=== PATIENT | male | born 1960 | race Caucasian/White ===

== ENCOUNTER 2018-11-13 09:35 | Day surgery (SDC) | payer OTHER | END 2018-11-13 16:50 | disposition home or self-care (01) | LOC: AMB-ENDOS 09:35 | DX: C20 Malignant neoplasm of rectum (principal) ==

== ENCOUNTER 2021-07-18 05:50 | Day surgery (SDC) | payer OTHER | END 2021-07-18 09:33 | disposition home or self-care (01) | LOC: AMB-ENDOS 05:50 | PROVIDERS: ATTEND Colon & Rectal Surgery | DX: K62.89 Other specified diseases of anus and rectum (principal); K64.8 Other hemorrhoids; Z20.822 Contact with and (suspected) exposure to COVID-19 ==

== ENCOUNTER 2021-12-13 11:07 | Inpatient (IN) | payer OTHER ==
[~2021-12-13] VITALS: Ht 180.3 cm; Wt 62.1 kg
[2021-12-13] MEDS ORDERED: LOSARTAN POTASS50 MG PO (12:10)
[2021-12-13] MEDS ORDERED: CLONAZEPAM0.5 MG PO (12:11)
[2021-12-13] MEDS ORDERED: TOPROL XL50 M1 PO (12:11)
[2021-12-13] MEDS ORDERED: LIPITOR20 MG PO (12:11)
[2021-12-13] MEDS ORDERED: TRIAZOLAM0.25 MG PO (12:12)
[2021-12-18] MEDS ORDERED: GABAPENTIN400 MG (11:01)
[2021-12-18] MEDS ORDERED: SERTRALINE HCL100 MG (11:02)
[2021-12-18] MEDS ORDERED: SULFASALAZINE500 M1 (11:02)
[2021-12-18] MEDS ORDERED: KETOCONAZOLE15 GM (11:02)
[2021-12-18] MEDS ORDERED: CLINDAMYCIN HC300 MG (11:02)
[2021-12-18] MEDS ORDERED: MIRTAZAPINE30 MG (11:02)
[2021-12-18] MEDS ORDERED: TRAMADOL HCL50 MG (11:02)
[2021-12-18] MEDS ORDERED: PANTOPRAZOLE SO20 MG (11:02)
[2021-12-18] MEDS ORDERED: ONDANSETRON HCL4 MG (11:02)
[2021-12-18] MEDS ORDERED: ESTAZOLAM2 MG (11:03)
[2021-12-18] MEDS ORDERED: FOLIC ACID1 MG (11:38)
== END 2021-12-19 23:42 | disposition home or self-care (01) | DRG 331 ==
LOC: O/R 12-18 06:10 → SURG 12-18 10:30 → SURH 12-18 14:50
PROVIDERS: ADMIT Colon & Rectal Surgery; ATTEND Colon & Rectal Surgery
PROC: 0D1L0Z4 Bypass Transverse Colon to Cutaneous, Open Approach (ICD-10-PCS; principal; 2021-12-18 10:30)
DX: C20 Malignant neoplasm of rectum (principal); Z20.822 Contact with and (suspected) exposure to COVID-19